=== PATIENT | male | born 1950 | race Caucasian/White ===

== ENCOUNTER 2022-10-11 16:49 | Emergency (ER) | payer MEDICARE, SELFPAY ==
[2022-10-11 17:07] VITALS: BP 172/85; PULSE 70; RESP 16; TEMP 36.6; O2SAT 99
--- NOTE | 2022-10-11 17:16 | ED.GENADULT ---
HPI - General Adult General Chief complaint: Wound/Laceration Stated complaint: finger pain/lt hand Time Seen by Provider: 10/11/22 17:10 Source: patient Mode of arrival: ambulatory Limitations: no limitations History of Present Illness HPI narrative: Patient is a 72-year-old male has wound to right index finger that started a week ago after he pulled a hangnail. Patient states it has increasingly gotten more red and more tender. Denies any draining from wound. Related Data Home Medications Medication Instructions Recorded Confirmed aspirin 81 mg tablet,delayed 81 mg PO DAILY 06/24/19 10/11/22 release Allergies Allergy/AdvReac Type Severity Reaction Status Date / Time No Known Allergies Allergy Verified 06/27/22 07:52 Review of Systems Review of Systems: All systems reviewed & are unremarkable except as noted in HPI and below Constitutional: Constitutional: Denies body ache(s), Denies fever(s), Denies headache(s), Denies malaise and Denies weakness Eyes: Eyes: Reports no additional eye complaints and Denies loss of vision ENT: Reports system reviewed and no additional complaints, except as documented, Denies otalgia, Denies headache(s), Denies nasal discharge, Denies sinus pain and Denies sore throat Cardiovascular: Cardiovascular: Reports no additional cardiovascular complaints, Denies chest pain, Denies irregular heart rhythm and Denies dyspnea Respiratory: Respiratory: Reports no additional respiratory complaints and Denies dyspnea Gastrointestinal: Gastrointestinal: Reports no additional gastrointestinal complaints, Denies abdominal pain, Denies melena, Denies hematochezia, Denies diarrhea, Denies nausea and Denies vomiting Musculoskeletal: Musculoskeletal: Reports no additional musculoskeletal complaints, Denies back pain, Denies myalgias, Denies arthralgias and Reports other (left distal index finger swollen with erythema and tenderness. ) Integumentary/Breasts: Skin/Breast: Reports system reviewed and no additional complaints, except as docu, Denies pruritus and Denies rash Neurologic: Reports system reviewed and no additional complaints, except as documented, Denies headache(s), Denies loss of vision and Denies weakness Psychiatric: Psychiatric: Reports no additional psychiatric complaints [facility] Past Medical History Medical History (Updated 10/11/22 @ 17:45 by Josette Jones, TELEPHONE INTERVIEWER) Essential (primary) hypertension Hepatitis C antibody test negative (~11/24/16) Type 2 diabetes mellitus without complications Surgical History Surgical History 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 History of arthroplasty of left shoulder (~11/09/16) History of bilateral knee arthroplasty (~04/09/03) Hx of LASIK (~12/05/02) Family History Family History Father Diabetes mellitus Family history of lung cancer Family history of malignant neoplasm of brain Grandparent Family history of tuberculosis Acute myocardial infarction Other Hypertension Social History Social History Smoking status: Former smoker Alcohol intake: current Drinks per week: 2 Substance use: never Substance use type: does not use Lack of Transportation: No Lack of Food: Never True Current Housing: I Have Housing Concerned About Future Housing: No Difficulty Paying Gas/Electric Bills: No Difficulty Paying for Meds: No Currently Unemployed: No Education: Master's Degree or Higher Difficulty w/ Childcare or Family Care: No Living arrangements: alone Additional living arrangements comments: recently just Occupation/Education: retired Gender identity (if verbalized by the patient): Male Sexual Orientation (if Verbalized by the Patient): Straight or Heterosexual Agree to blood products: Yes Comments At time of
[2022-10-11 17:51] VITALS: BP 145/77
== END 2022-10-11 17:51 | disposition home or self-care (01) ==
PROVIDERS: Emergency Provider Nurse Practitioner Family; PCP Family Medicine
DX: L03.012 Cellulitis of left finger (principal); I10 Essential (primary) hypertension; E11.9 Type 2 diabetes mellitus without complications; Z79.82 Long term (current) use of aspirin; Z87.891 Personal history of nicotine dependence
CPT/HCPCS: 10060; 87070; 87075; 87147; 87205; 99213; G0463

== ENCOUNTER 2022-12-01 09:20 | Outpatient (CLI) | payer MEDICARE, SELFPAY ==
[2022-12-01 19:10] LABS: Alanine Aminotransferase 45 U/L (6-50); Albumin Level 4.3 g/dL (3.5-5.1); Alkaline Phosphatase 69 U/L (38-126); Anion Gap 8 mmol/L (8-16); Aspartate Amino Transferase 52 U/L (17-59); Bilirubin,Total 0.7 mg/dL (0.2-1.3); Blood Urea Nitrogen 14 mg/dL (9-20); Calcium 9.1 mg/dL (8.4-10.2); Carbon Dioxide 30 mmol/L (22-30); Chloride 96 mmol/L (98-107); Cholesterol 202 mg/dL (0-200); Estimated Glomerular Filt Rate > 60; Glucose 353 mg/dL (65-110); HDL Direct 31 mg/dL; Potassium 4.9 mmol/L (3.4-5.0); Sodium 134 mmol/L (137-145); Triglycerides 174 mg/dL (<150)
[2022-12-01 19:21] LABS: LDL Cholesterol Direct 130 mg/dL
[2022-12-01 20:32] LABS: Hemoglobin A1C 11.5 % (<5.7)
== END 2022-12-01 09:21 | disposition home or self-care (01) ==
LOC: ANHGOSHLAB 09:22
PROVIDERS: PCP Family Medicine; Visit Provider Nurse Practitioner
DX: E11.9 Type 2 diabetes mellitus without complications (principal); E78.2 Mixed hyperlipidemia
CPT/HCPCS: 36415; 80053; 80061; 83036

== ENCOUNTER 2022-12-14 11:56 | Emergency (ER) | payer MEDICARE, SELFPAY ==
[2022-12-14 12:08] VITALS: BP 136/74; PULSE 85; RESP 18; TEMP 36.3; O2SAT 97
--- NOTE | 2022-12-14 12:15 | ED.GENADULT ---
HPI - General Adult General Chief complaint: Skin/Abscess/Foreign Body Stated complaint: TICK BITE Time Seen by Provider: 12/14/22 12:16 Source: patient Mode of arrival: ambulatory Limitations: no limitations History of Present Illness HPI narrative: 72-year-old male presented for complaint of two skin concerns. He endorses to the right upper groin he pulled a tick 4 days ago an area has become red and slightly swollen and tender. He has had a Band-Aid in place and used Prid; he has mild drainage from the site. He denies associated chest pain, nausea, vomiting, fatigue, fevers or chills. Also reports right lower inner leg with small scabbed area, but did not remove a tick and is unsure of the mechanism of wound. Patient also reports skin lesion to the left side of the penile shaft for about 2 months. Endorses it may have been from a dog scratch. He denies pain to the site, drainage, or bleeding. He applied Neosporin to the site. Related Data Home Medications Medication Instructions Recorded Confirmed aspirin 81 mg tablet,delayed 81 mg PO DAILY 06/24/19 12/14/22 release metformin 1,000 mg tablet 1,000 mg PO DAILY 10/25/22 12/14/22 Allergies Allergy/AdvReac Type Severity Reaction Status Date / Time No Known Allergies Allergy Verified 12/14/22 12:13 Review of Systems Review of Systems: CONSTITUTIONAL: Denies body aches, fever, chills, or sweats. EYES: Denies visual changes, redness, or discharge. ENT: Denies rhinorrhea, congestion CARDIOVASCULAR: Denies chest pain, palpitations, or edema. RESPIRATORY: Denies cough or dyspnea. GASTROINTESTINAL: Denies abdominal pain, nausea, vomiting, or diarrhea. SKIN: per HPI MUSCULOSKELETAL: Denies back pain, joint pain, or myalgia. NEUROLOGIC: Denies headache, numbness, tingling, or weakness. 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 History of arthroplasty of left shoulder (~11/09/16) History of bilateral knee arthroplasty (~04/09/03) Hx of LASIK (~12/05/02) Family History Family History Father Diabetes mellitus Family history of lung cancer Family history of malignant neoplasm of brain Grandparent Family history of tuberculosis Acute myocardial infarction Other Hypertension Social History Social History Smoking status: Former smoker Alcohol intake: current Drinks per week: 2 Substance use: never Substance use type: does not use Lack of Transportation: No Lack of Food: Never True Current Housing: I Have Housing Concerned About Future Housing: No Difficulty Paying Gas/Electric Bills: No Difficulty Paying for Meds: No Currently Unemployed: No Education: Master's Degree or Higher Difficulty w/ Childcare or Family Care: No Living arrangements: alone Additional living arrangements comments: recently just Occupation/Education: retired Gender identity (if verbalized by the patient): Male Sexual Orientation (if Verbalized by the Patient): Straight or Heterosexual Agree to blood products: Yes Comments At time of signature, I have reviewed and agree with nursing past medical, surgical, social and family history unless otherwise noted. Please see nursing chart for further information. There is no relevant family history pertinent to the presenting complaint Exam Narrative: GENERAL: Well-appearing HEAD: Normocephalic, atraumatic. EYES: conjunctivae clear, and EOMI. ENT: Mucous membranes moist. Oropharynx without edema, erythema or lesions. NECK: Supple. No lympha
== END 2022-12-14 12:32 | disposition home or self-care (01) ==
PROVIDERS: Emergency Provider Nurse Practitioner Family; PCP Family Medicine
DX: L03.314 Cellulitis of groin (principal); N48.89 Other specified disorders of penis; Z87.891 Personal history of nicotine dependence; I10 Essential (primary) hypertension; E11.9 Type 2 diabetes mellitus without complications
CPT/HCPCS: 99213; G0463

== ENCOUNTER 2023-03-02 10:22 | Outpatient (CLI) | payer MEDICARE, SELFPAY ==
[2023-03-02 13:12] LABS: Alanine Aminotransferase 31 U/L (6-50); Albumin Level 3.9 g/dL (3.5-5.1); Alkaline Phosphatase 54 U/L (38-126); Anion Gap 9 mmol/L (8-16); Aspartate Amino Transferase 30 U/L (17-59); Bilirubin,Total 0.8 mg/dL (0.2-1.3); Blood Urea Nitrogen 13 mg/dL (9-20); Carbon Dioxide 28 mmol/L (22-30); Chloride 99 mmol/L (98-107); Cholesterol 183 mg/dL (0-200); Estimated Glomerular Filt Rate > 60; Glucose 314 mg/dL (65-110); HDL Direct 34 mg/dL; Potassium 4.6 mmol/L (3.4-5.0); Sodium 136 mmol/L (137-145); Triglycerides 179 mg/dL (<150)
[2023-03-02 13:23] LABS: LDL Cholesterol Direct 110 mg/dL
[2023-03-02 16:00] LABS: Creatinine Urine 112.1 mg/dL
[2023-03-02 16:01] LABS: MALB Creatinine Ratio < 5.4 mg/g (0-30); Microalbumin Urine Random < 6.0 mg/L (0-16.7)
== END 2023-03-02 10:23 | disposition home or self-care (01) ==
LOC: ANHGOSHLAB 10:23
PROVIDERS: PCP Family Medicine; Visit Provider Physician Assistant
DX: E11.9 Type 2 diabetes mellitus without complications (principal); E78.2 Mixed hyperlipidemia
CPT/HCPCS: 36415; 80053; 80061; 82043; 84443

== ENCOUNTER 2023-05-14 21:31 | Emergency (ER) | payer MEDICARE, SELFPAY ==
[2023-05-14 21:47] VITALS: BP 132/75; PULSE 69; RESP 16; TEMP 36.4; O2SAT 99
--- NOTE | 2023-05-15 00:58 | ED.EXTPRO ---
HPI - Extremity Problem General Chief complaint: Extremity Problem,Nontraumatic Stated complaint: R toe pain/swelling Time Seen by Provider: 05/14/23 23:28 History of Present Illness HPI Narrative: 73-year-old male presents to the emergency department for evaluation of right fifth toe pain. Patient reports he got his toenail caught on the sock and that when he was walking around the pain continued to worsen. Related Data Home Medications Medication Instructions Recorded Confirmed aspirin 81 mg tablet,delayed 81 mg PO DAILY 06/24/19 03/02/23 release Allergies Allergy/AdvReac Type Severity Reaction Status Date / Time No Known Allergies Allergy Verified 03/02/23 09:21 Review of Systems Review of Systems: All systems reviewed & are unremarkable except as noted in HPI and below PMFSH Past Medical History Medical History (Updated 05/15/23 @ 01:02 by Lakhwinder Horton MD) Essential (primary) hypertension Hepatitis C antibody test negative (~11/24/16) Type 2 diabetes mellitus without complications Surgical History Surgical History 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 History of arthroplasty of left shoulder (~11/09/16) History of bilateral knee arthroplasty (~04/09/03) Hx of LASIK (~12/05/02) Family History Family History Father Diabetes mellitus Family history of lung cancer Family history of malignant neoplasm of brain Grandparent Family history of tuberculosis Acute myocardial infarction Other Hypertension Social History Social History Smoking status: Former smoker Alcohol intake: current Drinks per week: 2 Substance use: never Substance use type: does not use Lack of Transportation: No Lack of Food: Never True Current Housing: I Have Housing Concerned About Future Housing: No Difficulty Paying Gas/Electric Bills: No Difficulty Paying for Meds: No Currently Unemployed: No Education: Master's Degree or Higher Difficulty w/ Childcare or Family Care: No Living arrangements: alone Additional living arrangements comments: recently just Occupation/Education: retired Gender identity (if verbalized by the patient): Male Sexual Orientation (if Verbalized by the Patient): Straight or Heterosexual Agree to blood products: Yes Exam Narrative: APPEARANCE: Well appearing, no pain, no distress, well-nourished. HEAD: normocephalic, atraumatic. EYES: PERRLA/EOMI, conjunctivae clear. NOSE: Normal no drainage ABDOMINAL: Soft, nontender, nondistended, normal bowel sounds MUSCULOSKELETAL: Tenderness to right fifth toenail without abnormality NEURO: Alert. Cranial nerves II through XII intact. SKIN: Warm, dry. Normal Color Course Vital Signs Vital signs: Vital Signs Temperature 97.5 F L 05/14/23 21:47 Pulse Rate 69 05/14/23 21:47 Respiratory Rate 16 05/14/23 21:47 Blood Pressure 132/75 05/14/23 21:47 Pulse Oximetry 99 05/14/23 21:47 Oxygen Delivery Room Air 05/14/23 21:47 Temperature 97.5 F L 05/14/23 21:47 Pulse Rate 69 05/14/23 21:47 Respiratory Rate 16 05/14/23 21:47 Blood Pressure 132/75 05/14/23 21:47 Pulse Oximetry 99 05/14/23 21:47 Oxygen Delivery Room Air 05/14/23 21:47 Discharge Plan Discharge Clinical Impression: Injury of toenail Patient Disposition: Home, Self-Care Condition: Stable Instructions: Antibiotic Form Additional Instructions: Noel tape the affected toe and toenail. Have close follow-up with your primary care physician. Prescriptions: No Action simvastatin 5 mg tablet 5 mg PO DAILY Qty: 90 1RF aspirin 81 mg tablet,delayed release (DR/EC) 81 mg PO DAILY (DME) blood-glucose meter [Accu-Chek Ama Plus Meter] Misc See Rx Instructions .Route Qty:
== END 2023-05-15 01:30 | disposition home or self-care (01) ==
PROVIDERS: Emergency Provider Emergency Medicine; PCP Family Medicine
DX: S99.921A Unspecified injury of right foot, initial encounter (principal); I10 Essential (primary) hypertension; E11.9 Type 2 diabetes mellitus without complications; Z96.612 Presence of left artificial shoulder joint; Z96.653 Presence of artificial knee joint, bilateral; Z87.891 Personal history of nicotine dependence; Z79.82 Long term (current) use of aspirin; X58.XXXA Exposure to other specified factors, initial encounter
CPT/HCPCS: 99282

== ENCOUNTER 2023-07-18 09:00 | Outpatient (CLI) | payer MEDICARE, SELFPAY ==
[2023-07-18 12:55] LABS: Hematocrit 43.3 % (42.0-52.0); Hemoglobin 14.6 g/dL (14.0-18.0); Mean Corpuscular HGB Conc 33.7 g/dl (32-36); Mean Corpuscular Hemoglobin 31.3 pg (26-34); Mean Corpuscular Volume 92.9 fl (80-100); Mean Platelet Volume 10.2 fl (7.4-10.4); Platelet Count Result 269 k/mm3 (150-375); Red Blood Count 4.66 M/mm3 (4.6-6.20); White Blood Count 8.2 K/mm3 (4.5-10.0)
[2023-07-18 13:26] LABS: Alanine Aminotransferase 27 U/L (6-50); Alkaline Phosphatase 65 U/L (38-126); Anion Gap 9 mmol/L (8-16); Aspartate Amino Transferase 39 U/L (17-59); Bilirubin,Total 0.7 mg/dL (0.2-1.3); Blood Urea Nitrogen 13 mg/dL (9-20); Calcium 9.1 mg/dL (8.4-10.2); Carbon Dioxide 24 mmol/L (22-30); Chloride 102 mmol/L (98-107); Cholesterol 174 mg/dL (0-200); Estimated Glomerular Filt Rate > 60; Glucose 275 mg/dL (65-110); HDL Direct 34 mg/dL; Potassium 4.1 mmol/L (3.4-5.0); Sodium 135 mmol/L (137-145); Triglycerides 216 mg/dL (<150)
[2023-07-18 13:37] LABS: LDL Cholesterol Direct 102 mg/dL
[2023-07-18 13:50] LABS: Hemoglobin A1C 12.3 % (<5.7)
== END 2023-07-18 09:01 | disposition home or self-care (01) ==
PROVIDERS: PCP Family Medicine; Visit Provider Physician Assistant
DX: E78.2 Mixed hyperlipidemia (principal); E11.9 Type 2 diabetes mellitus without complications; I10 Essential (primary) hypertension; E88.810 Metabolic syndrome; E66.8 Other obesity
CPT/HCPCS: 36415; 80053; 80061; 83036; 84443; 85027

== ENCOUNTER 2023-11-27 09:11 | Outpatient (CLI) | payer MEDICARE, SELFPAY ==
[2023-11-27 11:51] LABS: Hematocrit 45.9 % (42.0-52.0); Mean Corpuscular HGB Conc 32.7 g/dl (32-36); Mean Corpuscular Hemoglobin 30.5 pg (26-34); Mean Corpuscular Volume 93.3 fl (80-100); Mean Platelet Volume 10.2 fl (7.4-10.4); Platelet Count Result 303 k/mm3 (150-375); Red Blood Count 4.92 M/mm3 (4.6-6.20); Red Cell Distribution Width 11.9 % (11.5-14.5); White Blood Count 9.7 K/mm3 (4.5-10.0)
== END 2023-11-27 09:12 | disposition home or self-care (01) ==
LOC: ANHGOSHLAB 09:13
PROVIDERS: PCP Family Medicine; Visit Provider Family Medicine
DX: E11.9 Type 2 diabetes mellitus without complications (principal); E78.2 Mixed hyperlipidemia; I10 Essential (primary) hypertension; E88.810 Metabolic syndrome
CPT/HCPCS: 36415; 84443; 85027

== ENCOUNTER 2024-10-15 08:13 | Outpatient (CLI) | payer MEDICARE, SELFPAY ==
--- NOTE | ~2024-10-15 | XR_ITS ---
XR hand LT 2V Ordering provider: MICHELL CarlsonC History: . M79.89 - Other specified soft tissue disorders . Comparison: None. FINDINGS: BONES: No acute fracture or dislocation. JOINT SPACES: Osteoarthritic changes of the first carpometacarpal joint. Narrowing of the proximal an d distal interphalangeal joints. SOFT TISSUES: Unremarkable. IMPRESSION: No acute osseous abnormality left hand. Polyarticular osteoarthritic changes. Reviewed, dictated and finalized at location A.
== END 2024-10-15 08:14 | disposition home or self-care (01) ==
LOC: GOSHIMG 08:14
PROVIDERS: PCP Family Medicine; Visit Provider Nurse Practitioner
DX: M79.89 Other specified soft tissue disorders (principal); M19.042 Primary osteoarthritis, left hand
CPT/HCPCS: 73120

== ENCOUNTER 2024-10-24 14:01 | Outpatient (CLI) | payer MEDICARE, SELFPAY ==
--- NOTE | ~2024-10-24 | CT_ITS ---
CT brain wo/w con Ordering provider: MICHELL CarlsonC History: . R41.3 - Other amnesia . Comparison: None. Technique: CT of the head with and without contrast. Radiation reduction technique utilized. The dose -length product was 1362 mGy-cm. 100 mL Omnipaque 350 was given IV. FINDINGS: BRAIN PARENCHYMA AND CSF SPACES: Mild leukoaraiosis and diffuse cortical atrophy. Mild atheromatous d isease. No midline shift, mass effect or hemorrhage. Postcontrast images demonstrate no abnormal enh ancement.The brain parenchyma and CSF spaces are otherwise normal. VISUALIZED PARANASAL SINUSES: Left maxillary sinus disease. Bilateral ethmoid sinus disease. Otherwis e,,Well aerated. MASTOIDS: Well aerated. BONES: The bones appear intact. SOFT TISSUES: Visualized nasopharynx is normal. Superficial soft tissues are normal. IMPRESSION: No acute intracranial findings. No abnormal enhancement. Reviewed, dictated and finalized at location A.
--- OUTSIDE RECORDS SUMMARY | 2024-10-24 14:32 | XMS_ITS | Continuity of Care Document ---
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 It does not include entries that were removed or entered in error. Problem Status Onset Date Problem Type Date of Resolution Comments Source Abdominal hernia Active Condition [facility] Benign essential hypertension (SNOMED CT 8416702) Active Condition [facility] Diabetes mellitus Active Condition [facility] Erectile dysfunction (SNOMED CT 579018799) Active Condition [facility] Exposure to potentially hazardous substance Active Condition [facility] Grief Active Condition [facility] Low back pain Active Condition [facility] Pain of left shoulder joint Active Condition [facility] Steatosis of liver Active Condition [facility] Vitamin D deficiency Active Condition [facility] Health Examination of Defined Subpopulations (ICD-9-CM V70.5) Inactive Condition 06/27/2023 Mar 08, 201 2 Entered By: RIAN GATES Comment: COMPLETED A/O REGISTRY EXAM [facility] Rash * (ICD-9-CM 782.1) Inactive Condition 06/27/2023 [facility] Diagnosis: ICD-10-CM Z00.00 Encntr for general adult medical exam w/o abnormal findings Active Diagnosis [facility] Medications Combined list of outpatient medications from Department of [facility] and Veterans Affairs facilities.Medications provided include 1) outpatient medications from the last 15 months, and 2) patient-reported medications. Medication Details Route Status Patient Instructions Prescription Expires Prescription Number Last Dispense Date Ordering Provider Order Date Order Qty Source ASPIRIN 81MG TAB,EC TAKE ONE TABLET BY MOUTH ONCE A DAY ORAL ACTIVE BONNIE GASCA 2011 [facility] CHOLECALCIF CHENTE 50MCG (2,000UNIT) TAB TAKE ONE TABLET BY MOUTH ONCE A DAY ORAL ACTIVE Dalia SAWYER 2012 [facility] MULTIVITAMI N/OPTH AREDS SINGLE STRENGTH TAB TAKE TWO TABLETS BY MOUTH BID WM ORAL ACTIVE BONNIE GASCA 2011 [facility] MULTIVITAMI NS CAP/TAB TAKE ONE TABLET BY MOUTH ONCE A DAY ORAL ACTIVE CHANTEL SAEED 2005 [facility] QUINAPRIL HCL 10MG TAB TAKE ONE TABLET BY MOUTH ONCE A DAY ORAL ACTIVE BONNIE GASCA 2011 [facility] Immunizations Combined list of available immunizations from the Department of Defense and Veterans Affairs facilities. Immunization Series Date Given Administered By Site Reaction Lot Number CVX Code Drug Purchasing Director Status Comments Source INFLUENZA, HIGH-DOSE, QUADRIVALENT 2022 ТАТЬЯНА CEJA LEFT DELTO ID [id number] A 197 complet ed [facility] COVID-19 (MODERNA), MRNA, LNP-S, PF, 50 MCG/0.5 ML (AGES 12+ YEARS) 1 2022 ТАТЬЯНА CEJA RIGHT DELTO ID [id number] 312 complet ed [facility] INFLUENZA VACCINE, QUADRIVALENT, ADJUVANTED 2020 205 complet ed [facility] PNEUMOCOCCAL POLYSACCHARID E PPV23 2020 33 complet ed [facility] ZOSTER RECOMBINANT 2 2020 187 complet ed [facility] COVID-19 (PFIZER), MRNA, LNP-S, PF, 30 MCG/0.3 ML DOSE 2 2020 208 complet ed [facility] COVID-19 (PFIZER), MRNA, LNP-S, PF, 30 MCG/0.3 ML DOSE 1 2019 208 complet ed [facility] PNEUMOCOCCAL CONJUGATE PCV 13 2018 133 complet ed [facility] ZOSTER RECOMBINANT 1 2018 187 complet ed [facility] INFLUENZA, INJECTABLE, QUADRIVALENT, PRESERVATIVE FREE 1 2017 150 complet ed [facility] TDAP 2017 115 complet ed Left Deltoid [facility] PNEUMOCOCCAL POLYSACCHARID E PPV23 1 2017 33 complet ed [facility] INFLUENZA, SEASONAL, INJECTABLE, PRESERVATIVE FREE 2014 140 complet ed [facility] TD(ADULT) UNSPECIFIED FORMULATION 2014 139 complet ed Left Deltoid [facility] INFLUENZA, UNSPECIFIED FORMULATION 2013 88 complet ed [facility] PNEUMOCOCCAL, UNSPECIFIED FORMULATION 2012 109 complet ed [facility] INFLUENZA, UNSPECIFIED FORMULATION 2012 88 complet ed [facility] ZOSTER LIVE 2011 121 complet ed [facility] INFLUENZA, UNSPECIFIED FORMULATION 2011 88 complet ed [facility] INFLUENZA, UNSPECIFIED FORMULATION 2008 88 complet ed [facility] INFLUENZA, UNSPECIFIED FORMULATION 2007 AMOS SNELL 88 complet ed [facility] INFLUENZA, UNSPECIFIED FORMULATION 2006 88 complet ed [facility] OUTSIDE FLU SHOT (HISTORICAL) 2004 88 complet ed [facility] Encounters Combined list of: 1) Encounters from Department of Veterans Affairs facilities going backup to the last 18 months, not all VA inpatient encounters are included; 2) Encounters from the Department of Defense facilities going backup to 280 months. Location Location Details Encounter Type Encounter Number Reason For Visit Attending Provider ADM Date DC Date Status Disposition Source [facility] Outpatient Encounter [id number] 04/26 [facility] HC PRO PHONE CALL 5-10 MIN [id number] PAULINE CEJA C 04/28 [facility] Outpatient Encounter [id number] 06/27 [facility] IMMUNIZATI ON ADMIN [id number] Diagnos is: ICD-10- CM Z00.00 Encntr for general adult medical exam w/o abnorma l finding s DANTE,CARMELLA BY R 06/27 [facility] Outpatient Encounter [id number] 07/02 [facility] Social History Combined list of available smoking, tobacco, and other social history from Department of Defense and Veterans Affairs facilities. Social History Type Response Date Comment [facility]ly [facility] e Tobacco smoking status NHIS VA-TOBACCO FORMER USER 06/27/2023 [facility] History of tobacco use MS-TOBACCO QUIT 1 5 YRS OR MORE 06/27/2023 [facility] History of tobacco use VA-TOBACCO FORMER USER 05/06/2022 [facility] History of tobacco use MS-TOBACCO QUIT 1 5 YRS OR MORE 04/05/2018 [facility] History of tobacco use QUIT TOBACCO >7 Y EARS AGO 09/16/2014 [facility] History of tobacco use QUIT TOBACCO >7 Y EARS AGO 05/28/2013 [facility] History of tobacco use QUIT TOBACCO >7 Y EARS AGO 04/19/2012 [facility] History of tobacco use CURRENT NON-TOBAC CO USER-HX OF USE 10/14/2005 [facility]
--- OUTSIDE RECORDS SUMMARY | 2024-10-24 14:32 | XMS_ITS | Clinical Summary ---
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 Gender Identity Not on file Sexual Orientation Not on file Plan of Treatment Health Maintenance Due Date Last Done Comments Hepatitis C Virus (HCV) Screening 1950 TdaP Immunization 1950 Colonoscopy 1994 Colorectal Cancer Screening 1994 Cologuard 1999 Immunochemical Fecal Occult Blood 1999 Pneumococcal Immunization (5 0+ years) (1 of 1 - PCV) 1999 Zoster Immunization (1 of 2) 1999 Respiratory Syncytial Virus (RSV) Immunization (Adult) (1 - 1-dose 75+ series) 01/27/2024 Influenza Immunization (#1) 2024 SARS-COV-2 Immunization (2023-25 season) 2024 08/17/2020, 07/27/2020 Hepatitis B Immunization Aged Out No longer eligible based on patient's age to complete this topic Meningococcal Immunization (ACWY) Aged Out No longer eligible b ased on patient's age to complete this topic Rotavirus Immunization Aged Out No lo nger eligible based on patient's age to complete this topic
[2024-10-24 14:48] LABS: Estimated Glomerular Filt Rate > 60
== END 2024-10-24 14:02 | disposition home or self-care (01) ==
LOC: ANHIMG 14:04
PROVIDERS: PCP Family Medicine; Visit Provider Nurse Practitioner
DX: R41.3 Other amnesia (principal)
CPT/HCPCS: 70470; Q9967

== ENCOUNTER 2024-12-13 08:59 | Outpatient (CLI) | payer MEDICARE, SELFPAY ==
--- OUTSIDE RECORDS SUMMARY | 2024-12-13 09:05 | XMS_ITS | Continuity of Care Document ---
Author Name [facility] Organization [facility] Care Team Providers Care Copyman Name Role Phone [facility] Unavailable Unavailable Problems Combined list of problems from Department of [facility] and Veterans Affairs facilities. It does not include entries that were removed or entered in error. Problem Status Onset Date Problem Type Date of Resolution Comments Source Abdominal hernia Active Condition [facility] Benign essential hypertension (SNOMED [place] 3462716) Active Condition [facility] Diabetes mellitus Active Condition [facility] Erectile dysfunction (SNOMED CT 420562828) Active Condition [facility] Exposure to potentially hazardous substance Active Condition [facility] Grief Active Condition [facility] Low back pain Active Condition [facility] Pain of left shoulder joint Active Condition [facility] Steatosis of liver Active Condition [facility] Vitamin D deficiency Active Condition [facility] Health Examination of Defined Subpopulations (ICD-9-CM V70.5) Inactive Condition 06/27/2023 Mar 08, 201 2 Entered By: RIAN GATES Comment: COMPLETED A/O REGISTRY EXAM [facility] Rash * (ICD-9-CM 782.1) Inactive Condition 06/27/2023 [facility] Diagnosis: ICD-10-CM Z00.00 Encntr for general adult medical exam w/o abnormal findings Active Diagnosis [facility] Medications Combined list of outpatient medications from Department of [facility] and Veterans Affairs facilities.Medications provided include 1) outpatient medications from the last 15 months, and 2) patient-reported medications. Medication Details Route Status Patient Instructions Prescription Expires Prescription Number Last Dispense Date Ordering Provider Order Date Order Qty Source ASPIRIN 81MG TAB,EC TAKE ONE TABLET BY MOUTH ONCE A DAY ORAL ACTIVE BONNIE GASCA 2011 [facility] CHOLECALCIF CHENTE 50MCG (2,000UNIT) TAB TAKE ONE TABLET BY MOUTH ONCE A DAY ORAL ACTIVE Dalia SAWYER 2012 [facility] MULTIVITAMI N/OPTH AREDS SINGLE STRENGTH TAB TAKE TWO TABLETS BY MOUTH BID WM ORAL ACTIVE BONNIE GASCA 2011 [facility] MULTIVITAMI NS CAP/TAB TAKE ONE TABLET BY MOUTH ONCE A DAY ORAL ACTIVE CHANTEL SAEED [facility] QUINAPRIL HCL 10MG TAB TAKE ONE TABLET BY MOUTH ONCE A DAY ORAL ACTIVE BONNIE GASCA 2011 [facility] Immunizations Combined list of available immunizations from the Department of Defense and [facility] Affairs facilities. Immunization Series Date Given Administered By Site Reaction Lot Number CVX Code Drug Nylon Winder Status Comments Source INFLUENZA, HIGH-DOSE, QUADRIVALENT 2022 ТАТЬЯНА CEJA LEFT DELTO ID [id number] A 197 complet ed [facility] COVID-19 (MODERNA), MRNA, LNP-S, PF, 50 MCG/0.5 ML (AGES 12+ YEARS) 1 2022 ТАТЬЯНА CEJA RIGHT DELTO ID [id number] 312 complet ed [facility] INFLUENZA VACCINE, QUADRIVALENT, ADJUVANTED 2020 205 complet ed [facility] PNEUMOCOCCAL POLYSACCHARID E PPV23 2020 33 complet ed [facility] ZOSTER RECOMBINANT 2 2020 187 complet ed [facility] COVID-19 (PFIZER), MRNA, LNP-S, PF, 30 MCG/0.3 ML DOSE 2 2020 208 complet ed HISTORICA L INFORMATI ON - FROM OTHER RUST, [facility] COVID-19 (PFIZER), MRNA, LNP-S, PF, 30 MCG/0.3 ML DOSE 1 2019 208 complet ed HISTORICA L INFORMATI ON - FROM OTHER REGISTRY, [facility] PNEUMOCOCCAL CONJUGATE PCV 13 2018 133 complet ed [facility] ZOSTER RECOMBINANT 1 2018 187 complet ed [facility] INFLUENZA, INJECTABLE, QUADRIVALENT, PRESERVATIVE FREE 1 2017 150 complet ed HISTORICA L INFORMATI ON - FROM OTHER REGISTRY, [facility] TDAP 2017 115 complet ed Left Deltoid [facility] PNEUMOCOCCAL POLYSACCHARID E PPV23 1 2017 33 complet ed HISTORICA L INFORMATI ON - FROM OTHER REGISTRY, [facility] INFLUENZA, SEASONAL, INJECTABLE, PRESERVATIVE FREE 2014 140 complet ed [facility] TD(ADULT) UNSPECIFIED FORMULATION 2014 139 complet ed Left Deltoid [facility] INFLUENZA, UNSPECIFIED FORMULATION 2013 88 complet ed [facility] PNEUMOCOCCAL, UNSPECIFIED FORMULATION 2012 109 complet ed [facility] INFLUENZA, UNSPECIFIED FORMULATION 2012 88 complet ed [facility] ZOSTER LIVE 2011 121 complet ed [facility] INFLUENZA, UNSPECIFIED FORMULATION 2011 88 complet ed [facility] INFLUENZA, UNSPECIFIED FORMULATION 2008 88 complet ed [facility] INFLUENZA, UNSPECIFIED FORMULATION 2007 AMOS SNELL 88 complet ed [facility] INFLUENZA, UNSPECIFIED FORMULATION 2006 88 complet ed [facility] OUTSIDE FLU SHOT (HISTORICAL) 2004 88 complet ed [facility] Encounters Combined list of: 1) Encounters from Department of Veterans Affairs facilities going backup to the last 18 months, not all VA inpatient encounters are included; 2) Encounters from the Department of Defense facilities going backup to 280 months. Location Location Details Encounter Type Encounter Number Reason For Visit Attending Provider ADM Date DC Date Status Disposition Source [facility] Outpatient Encounter [id number] 06/27 [facility] [place] [id number] Diagnos is: ICD-10- CM Z00.00 Encntr for general adult medical exam w/o abnorma l CARMELLA Del Toro BY Toshia 06/27 [facility] Outpatient Encounter [id number] 07/02 [facility] Social History Combined list of available smoking, tobacco, and other social history from Department of Defense and Veterans Affairs facilities. Social History Type Response Date Comment [facility] Tobacco smoking status NHIS VA-TOBACCO FORMER USER 06/27/2023 [facility] History of tobacco use [place]-TOBACCO QUIT 1 5 YRS OR MORE 06/27/2023 [facility] History of tobacco use [place]-TOBACCO FORMER USER 05/06/2022 [facility] History of tobacco use VA-TOBACCO FORMER USER 04/05/2018 [facility] History of tobacco use QUIT TOBACCO >7 Y EARS AGO 09/16/2014 [facility] History of tobacco use QUIT TOBACCO >7 Y EARS AGO 05/28/2013 [facility] History of tobacco use QUIT TOBACCO >7 Y EARS AGO 04/19/2012 [facility] History of tobacco use CURRENT NON-TOBAC CO USER-HX OF USE 10/14/2005 [facility]
--- OUTSIDE RECORDS SUMMARY | 2024-12-13 09:05 | XMS_ITS | Clinical Summary ---
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
[2024-12-13 19:48] LABS: Hemoglobin A1C 8.6 % (<5.7)
[2024-12-13 19:50] LABS: Creatinine Urine 136.4 mg/dL
[2024-12-13 19:55] LABS: MALB Creatinine Ratio 4.5 mg/g (0-30); Microalbumin Urine Random 6.2 mg/L (0-16.7)
[2024-12-13 20:33] LABS: Alanine Aminotransferase 21 U/L (6-50); Alkaline Phosphatase 57 U/L (38-126); Anion Gap 6 mmol/L (4-12); Aspartate Amino Transferase 32 U/L (17-59); Bilirubin,Total 0.5 mg/dL (0.2-1.3); Blood Urea Nitrogen 14 mg/dL (9-20); Calcium 9.4 mg/dL (8.4-10.2); Carbon Dioxide 30 mmol/L (22-30); Chloride 101 mmol/L (98-107); Cholesterol 196 mg/dL (0-200); Estimated Glomerular Filt Rate > 60; Glucose 203 mg/dL (65-110); HDL Direct 43 mg/dL; Potassium 4.9 mmol/L (3.4-5.0); Sodium 137 mmol/L (137-145); Triglycerides 153 mg/dL (<150)
[2024-12-13 20:43] LABS: LDL Cholesterol Direct 105 mg/dL
[2024-12-13 21:31] LABS: Folic Acid 7.3 ng/mL (2.76->20)
[2024-12-17 10:33] LABS: Vitamin B6 7.8 ng/mL (2.1-21.7)
== END 2024-12-13 09:00 | disposition home or self-care (01) ==
PROVIDERS: Nurse Practitioner; PCP Family Medicine; Visit Provider Family Medicine
DX: E11.9 Type 2 diabetes mellitus without complications (principal); R41.3 Other amnesia; E78.2 Mixed hyperlipidemia; G47.00 Insomnia, unspecified; E66.89 Other obesity not elsewhere classified; Z79.899 Other long term (current) drug therapy
CPT/HCPCS: 36415; 80053; 80061; 82043; 82607; 82746; 83036; 84207; 84443